=== PATIENT | female | born 1970 | race African-American/Black ===

== ENCOUNTER 2021-03-12 17:54 | Emergency (ER) | payer SELFPAY ==
[~2021-03-12] VITALS: Ht 162.6 cm; Wt 91.0 kg
[2021-03-12] MEDS ORDERED: HYDROCODONE/ACETAMINOPHEN 5/325MG TABLET PO STA (20:51)
[2021-03-12] MEDS ORDERED: BACITRACIN ZINC OINT UDPKT TOP ONE (21:00)
[2021-03-12] MEDS ORDERED: TETANUS, DIPHTHERIA, PERTUSSIS VAC/PF 0.5ML (>7YR OLD) IM ONE (21:00)
[2021-03-12] MEDS ORDERED: CIPR-263 MT (23:40)
[2021-03-12] MEDS ORDERED: CLIN300C12 MT (23:40)
[2021-03-13 00:19] VITALS: BP 136/76
== END 2021-03-13 00:20 | disposition home or self-care (01) ==
LOC: ER 17:54
DX: T25.122A Burn of first degree of left foot, initial encounter (principal); E11.9 Type 2 diabetes mellitus without complications; G62.9 Polyneuropathy, unspecified; X11.0XXA Contact with hot water in bath or tub, initial encounter; Y93.E1 Activity, personal bathing and showering; Y92.012 Bathroom of single-family (private) house as the place of occurrence of the external cause
CPT/HCPCS: 90471; 90715; 93005; 99283; Z7610